=== PATIENT | male | born 1965 | race Caucasian/White ===

== ENCOUNTER 2019-11-18 19:01 | Emergency (ER) | payer OTHER ==
[~2019-11-18] VITALS: Ht 190.5 cm; Wt 97.5 kg
[~2019-11-18 19:01] MED LIST: MINIPRIN81 MG PO; NITROSTAT0.3 MG SL; PEPCID40 MG PO; TUMS
[2019-11-18 22:41] VITALS: BP 141/80
== END 2019-11-18 22:41 | disposition home or self-care (01) ==
LOC: M.ERS 19:01
DX: S61.210A Laceration without foreign body of right index finger without damage to nail, initial encounter (principal); Z79.82 Long term (current) use of aspirin; Z79.899 Other long term (current) drug therapy; W26.8XXA Contact with other sharp object(s), not elsewhere classified, initial encounter; Y93.89 Activity, other specified; Y92.89 Other specified places as the place of occurrence of the external cause; Y99.9 Unspecified external cause status